=== PATIENT | female | born 1990 | race Two or more races ===

== ENCOUNTER 2016-10-26 13:15 | Emergency (ER) | payer MEDICAID, OTHER ==
[~2016-10-26] VITALS: Ht 170.2 cm; Wt 74.8 kg
[~2016-10-26 13:15] MED LIST: ONDA8TAB12 PO; OXYC-323 PO
[2016-10-26 13:17] VITALS: BP 122/77
--- NOTE | 2016-10-26 13:45 | PHYS DOC ---
Past History Past Medical History: No Pertinent History Past Surgical History: Appendectomy Alcohol Use: Occasionally Drug Use: None Adult General Chief Complaint Chief Complaint: FOOT INJURY PAIN HPI HPI Patient is a 26-year-old female complaining of right foot pain after an injury yesterday. Patient was going down stairs when she missed a step, she hyperflexed her foot at her MTP joints, fell forward, skinned the front of her lower leg and her knee. Today, she is having a lot of pain in her right foot at the MTP area. She had to walk on the side of her foot at work today because it hurts too much to bear weight on the first and second MTPs. She denies other injury. Patient denies . Review of Systems Review of Systems : Denies Musculoskeletal: Denies other injury except right foot/leg/knee Allergies Allergies Allergies Coded Allergies Type Severity Reaction Last Updated Verified No Known Drug Allergies 01/02/16 No Physical Exam Physical Exam Constitutional: Well developed, well nourished, no acute distress, non-toxic appearance. Alert, mentating normally. HENT: Normocephalic, atraumatic, bilateral external ears normal, nose normal. [ ] Eyes: conjunctiva normal, no discharge. [] Neck: Normal range of motion, no stridor. [] Skin: Warm, dry, no erythema, no rash. [] Extremities: Right knee mildly tender to palpation without specific bony tenderness, full range of motion, no swelling. Right lower leg with a superficial abrasion over the middle of the ant tibia. No bony tenderness. Foot is tender over the 1st and 2nd MTPs, little swelling. Neurologic: Alert and oriented X 3, normal motor function, normal sensory function, no focal deficits noted. [] Current Patient Data Vital Signs Vital Signs Date Time Temp Pulse Resp B/P (MAP) Pulse Ox O2 Delivery O2 Flow Rate FiO2 10/26/16 13:17 98.0 81 16 98 Room Air EKG EKG [] Radiology/Procedures Radiology/Procedures Three-view x-rays of the right foot read by the radiologist. No acute bony injury. I reviewed the x-rays and I do believe the patient may have a acute fracture of the first MTP sesamoid bone. Not clinically significant but will be painful. [] Course & Med Decision Making Course & Med Decision Making Pertinent Labs and Imaging studies reviewed. (See chart for details) 26-year-old female with a right foot injury. No clinically significant fracture but I believe she does have a fracture of the right first MTP sesamoid bone which will be painful. She will be put in a postop shoe. See instructions for plan. [] Dragon Disclaimer Dragon Disclaimer This chart was dictated in whole or in part using Voice Recognition software in a busy, high-work load, and often noisy Emergency Department environment. It may contain unintended and wholly unrecognized errors or omissions. Departure Departure: Impression: Primary Impression: Closed fracture of sesamoid bone of right foot Disposition: HOME, SELF-CARE Condition: STABLE Referrals: PCP,NO (PCP) Patient Instructions: Foot Fracture-Brief Additional Instructions: As we discussed, x-rays do not show any significant or large fracture of any bone in the foot or toe, however, a small bone on the bottom of the foot called a sesamoid bone may be cracked. This can be painful even though it does not require any specific treatment. Wear The hard soled shoe for comfort as long as it is more comfortable than regular shoes. Ice 15-20 minutes out of every 1-2 hours for pain and swelling. Ibuprofen 800 milligrams every 6-8 hours for pain. Try to stay off of your foot and keep it elevated until pain improves. KHOA COUGHLIN MD Oct 26, 2016 13:45
--- NOTE | 2016-10-26 13:49 | RAD ---
Indication injury one day earlier. Persistent pain. AP oblique and lateral views of the right foot were obtained. No bony abnormality is seen
== END 2016-10-26 14:12 | disposition home or self-care (01) ==
LOC: ER 13:15
DX: S92.811A Other fracture of right foot, initial encounter for closed fracture (principal); W10.9XXA Fall (on) (from) unspecified stairs and steps, initial encounter; Y93.89 Activity, other specified; Y99.8 Other external cause status; Y92.89 Other specified places as the place of occurrence of the external cause
CPT/HCPCS: 73630; 99284

== ENCOUNTER 2017-10-17 04:04 | Emergency (ER) | payer OTHER ==
[~2017-10-17] VITALS: Ht 170.2 cm; Wt 77.9 kg
[2017-10-17 04:04] VITALS: BP 117/75
--- NOTE | 2017-10-17 04:38 | ED.ADGEN ---
Past History Past Medical History: No Pertinent History, Asthma, Other Past Surgical History: Appendectomy Alcohol Use: Occasionally Drug Use: None Adult General Chief Complaint Chief Complaint "..The last couple days.. I ve got edema.. in my hands and feet.. and this rash on my inner lt thigh.. '... I ve not been exposed to anything new I can think of..." HPI HPI Patient is a 26 year old female who presents with interment episode of rash, hand and foot edema. Pt. has tried benadryl with no relief. Patient denies any new foods, meds, exposures, soaps or personal hygiene items. No recent travel or specific ill contacts. Have a history of asthma in the past. There is no family history of angioedema. Has had episodes of gastritis. Review of Systems Review of Systems Constitutional: Denies fever or chills [] Eyes: Denies change in visual acuity, redness, or eye pain [] HENT: Denies nasal congestion or sore throat [] Respiratory: Denies cough or shortness of breath [] Cardiovascular: No additional information not addressed in HPI [] GI: Denies abdominal pain, nausea, vomiting, bloody stools or diarrhea [] : Denies dysuria or hematuria [] Musculoskeletal: Denies back pain or joint pain [] Integument: History of rash/hives Neurologic: Denies headache, focal weakness or sensory changes [] Endocrine: Denies polyuria or polydipsia [] All other systems were reviewed and found to be within normal limits, except as documented in this note. Family History Family History Noncontributory Current Medications Current Medications Current Medications Medications (Trade) Dose Ordered Sig/Howie Start Time Stop Time Status Last Admin Dose Admin Albuterol Sulfate (Ventolin Hfa) 2 puff 1X ONCE 10/17/17 05:00 10/17/17 05:01 DC 10/17/17 05:02 2 PUFF Famotidine (Pepcid) 20 mg 1X ONCE 10/17/17 05:00 10/17/17 05:01 DC 10/17/17 05:03 20 MG Prednisone (Prednisone) 50 mg 1X ONCE 10/17/17 05:00 10/17/17 05:01 DC 10/17/17 05:02 50 MG Allergies Allergies Allergies Coded Allergies Type Severity Reaction Last Updated Verified No Known Drug Allergies 01/02/16 No Physical Exam Physical Exam Constitutional: Well developed, well nourished, no acute distress, non-toxic appearance. [] HENT: Normocephalic, atraumatic, bilateral external ears normal, oropharynx moist, no oral exudates, nose normal. [] Eyes: PERRLA, EOMI, conjunctiva normal, no discharge. [] Glasses. Neck: Normal range of motion, no tenderness, supple, no stridor. [] Cardiovascular:Heart rate regular rhythm, no murmur [] Lungs & Thorax: Bilateral breath sounds equal apex with scattered wheezes on auscultation [] Abdomen: Bowel sounds normal, soft, no tenderness, no masses, no pulsatile masses. [] Skin: Warm, dry, no erythema, no rash. [] Areas of swelling in hands and feet. Has hives-like rash on inner thigh left leg. Extensive tattoos. Back: No tenderness, no CVA tenderness. [] Extremities: No tenderness, no cyanosis, no clubbing, ROM intact, hand and foot edema. [] Neurologic: Alert and oriented X 3, normal motor function, normal sensory function, no focal deficits noted. [] Psychologic: Affect anxious, judgement normal, mood normal. [] Current Patient Data Vital Signs Vital Signs Date Time Temp Pulse Resp B/P (MAP) Pulse Ox O2 Delivery O2 Flow Rate FiO2 10/17/17 04:04 97.9 71 16 100 Room Air EKG EKG [] Radiology/Procedures Radiology/Procedures [] Course & Med Decision Making Course & Med Decision Making Pertinent Labs and Imaging studies reviewed. (See chart for details). Patient attempted to find source of possible irritant or rash. Take Benadryl 25-50 mg 4 times a day. Take prednisone 50 mg a day for 5 days. Takes Zantac 150 mg twice a day for 15 days. Use MDI 2 puffs 4 times a day. Follow-up primary care. Return if any concerns. [] Final Impression Final Impression 1. Hives 2. Allergic Rx.?[] Dragon Disclaimer Dragon Disclaimer This electronic medical record was generated, in whole or in part, using a voice recognition dictation system. MANDY DOUGLAS MD Oct 17, 2017 04:38
[2017-10-17] MEDS ORDERED: PRED50TA PO (04:42)
[2017-10-17] MEDS ORDERED: RANI150T21 PO (04:42)
[2017-10-17] MEDS ORDERED: predniSONE 10 MG TABLET PO ONE (05:00)
[2017-10-17] MEDS ORDERED: FAMOTIDINE 20 MG TABLET PO ONE (05:00)
[2017-10-17] MEDS ORDERED: ALBUTEROL SULFATE 8GM INHALER. INH ONE (05:00)
== END 2017-10-17 05:04 | disposition home or self-care (01) ==
LOC: ER 04:04
DX: L50.9 Urticaria, unspecified (principal); J45.909 Unspecified asthma, uncomplicated
CPT/HCPCS: 94640; 99283; J7512; J7613